=== PATIENT | female | born 1990 | race Caucasian/White ===

== ENCOUNTER 2017-08-22 08:18 | Emergency (ER) | payer MEDICAID, OTHER ==
[~2017-08-22] VITALS: Ht 160 cm; Wt 87.1 kg
[2017-08-22 08:26] VITALS: BP 138/74
--- NOTE | 2017-08-22 08:29 | NUR ---
[facility] PT AMBULATES TO CHAIR D
--- NOTE | 2017-08-22 08:30 | NUR ---
PATIENT PRESENTS TO ED WITH RT. EAR PAIN. DIFFICULTY SWALLOWING.COUGH THIS MORNING. DENIES FEVER. DENIES HX:,DENIES HOME MEDS; DENIES N/V/D; SKIN IS PINK/WARM/DRY; AAOX4 WITH EVEN AND STEADY GAIT; LUNGS CLEAR BL; HR EVEN AND REGULAR; PT DENIES ANY FEVER, CP, SOB, OR COUGH AT THIS TIME; PATIENT STATES PAIN OF 6/10 AT THIS TIME; VSS; ER MD MADE AWARE OF PT STATUS.
[2017-08-22 09:20] VITALS: BP 138/74
--- NOTE | 2017-08-22 09:20 | NUR ---
Patient discharged with v/s stable. Written and verbal after care instructions given and explained. Patient alert, oriented and verbalized understanding of instructions. Ambulatory with steady gait. All questions addressed prior to discharge. ID band removed. Patient advised to follow up with PMD. Rx of Tamiflu, Promethazine, Motrin given. Patient educated on indication of medication including possible reaction and side effects. Opportunity to ask questions provided and answered.
== END 2017-08-22 09:20 | disposition home or self-care (01) ==
LOC: MED 08:18
DX: J11.1 Influenza due to unidentified influenza virus with other respiratory manifestations (principal); Z88.5 Allergy status to narcotic agent; Z88.6 Allergy status to analgesic agent
CPT/HCPCS: 99283

== ENCOUNTER 2017-09-14 12:17 | Emergency (ER) | payer OTHER ==
[~2017-09-14] VITALS: Ht 162.6 cm; Wt 88.9 kg
[2017-09-14 12:27] VITALS: BP 130/79
--- NOTE | 2017-09-14 12:39 | NUR ---
PATIENT PRESENTS TO ED WITH PRURITUS HIVES TO TORSO ARMS BACK X YESTERDAY -- . PT STATES [TOOK COUGH MEDICINE WHICH SHE HAS TAKEN BEFORE WITH NO REACTION LAST NIGHT BUT ALSO DONNED A SWEATER WHICH SHE USED NEW DETERGENT ] . DENIES N/V/D; SKIN IS PINK/WARM/DRY; AAOX4 WITH EVEN AND STEADY GAIT; LUNGS CLEAR BL; HR EVEN AND REGULAR; FEVER, SOB, OR COUGH AT THIS TIME; PATIENT STATES PAIN OF 0/10 AT THIS TIME; VSS; PATIENT POSITIONED FOR COMFORT; HOB ELEVATED; BEDRAILS UP X2; BED DOWN. ER MD MADE AWARE OF PT STATUS.
--- NOTE | 2017-09-14 13:06 | NUR ---
DR MARIN AT BEDSIDE FOR TX
[2017-09-14 13:59] VITALS: BP 130/79
--- NOTE | 2017-09-14 14:00 | NUR ---
Patient discharged with v/s stable. Written and verbal after care instructions given and explained. Patient alert, oriented and verbalized understanding of instructions. Ambulatory with steady gait. All questions addressed prior to discharge. ID band removed. Patient advised to follow up with PMD. Rx of pepcid,prednisone,robuitussin, benadryl given. Patient educated on indication of medication including possible reaction and side effects. Opportunity to ask questions provided and answered.
== END 2017-09-14 14:00 | disposition home or self-care (01) ==
LOC: MED 12:17
DX: J20.8 Acute bronchitis due to other specified organisms (principal); J45.909 Unspecified asthma, uncomplicated; Z88.6 Allergy status to analgesic agent; Z88.5 Allergy status to narcotic agent
CPT/HCPCS: 99283

== ENCOUNTER 2022-01-13 12:01 | Emergency (ER) | payer MEDICAID, OTHER ==
[~2022-01-13] VITALS: Ht 162.6 cm; Wt 91.6 kg
[2022-01-13 12:12] VITALS: BP 154/83
--- NOTE | 2022-01-13 12:24 | NUR ---
MARLENE AND FLU SWABS COLLECTED AND WALKED TO LAB
--- NOTE | 2022-01-13 12:43 | NUR ---
32/F PRESENTS TO ED WITH C/O SUBJECTIVE FEVER, COUGH AND SOB SINCE YESTERDAY, DENIES RECENT SICK CONTACTS. REPORTS TAKING IBUPROFEN, LAST DOSE AT 6AM. PATIENT DENIES N/V/D OR URINARY SYMPTOMS.
[2022-01-13] MEDS ORDERED: ONDA-188 PO (13:11)
[2022-01-13] MEDS ORDERED: PROM118S6 PO (13:11)
[2022-01-13] MEDS ORDERED: OMEP40EC24 PO (13:11)
[2022-01-13 13:35] VITALS: BP 154/83
--- NOTE | 2022-01-13 13:36 | NUR ---
Patient discharged with v/s stable. Written and verbal after care instructions given and explained. Patient alert, oriented and verbalized understanding of instructions. Ambulatory with steady gait. All questions addressed prior to discharge. ID band removed. Patient advised to follow up with PMD. Rx of PRILOSEX, ZOFRAN AND PROMETHAZINE-DM SYRUP given. Patient educated on indication of medication including possible reaction and side effects. Opportunity to ask questions provided and answered.
== END 2022-01-13 13:36 | disposition home or self-care (01) ==
LOC: MED 12:01
DX: U07.1 COVID-19 (principal); K21.9 Gastro-esophageal reflux disease without esophagitis; E78.00 Pure hypercholesterolemia, unspecified; Z79.1 Long term (current) use of non-steroidal anti-inflammatories (NSAID); Z79.891 Long term (current) use of opiate analgesic
CPT/HCPCS: 81025; 99283